=== PATIENT | female | born 1995 | race Caucasian/White ===

== ENCOUNTER 2019-12-20 14:20 | Emergency (ER) | payer MEDICAID ==
[~2019-12-20] VITALS: Ht 157.5 cm; Wt 68.0 kg
[2019-12-20 14:23] VITALS: BP 128/52
[2019-12-20] MEDS ORDERED: HYDROcodone/APAP 10/325 MG 1 TAB TAB PO STA (14:36)
[2019-12-20] MEDS ORDERED: methocarbamoL 500 MG TAB PO STA (14:36)
[2019-12-20] MEDS ORDERED: KETOROLAC 30 MG/ML VIAL IM ONE (14:40)
[2019-12-20] MEDS ORDERED: LIDOCAINE MPF 1% 10 MG/ML VIAL INJ ONE (15:30)
[2019-12-20] MEDS ORDERED: BACITRACIN OINT 500 UNITS/GM PKT TP ONE (15:30)
[2019-12-20 15:44] LABS: BASOPHILS % (AUTO) 0.6 % (0.0-2.0); EOSINOPHILS # (AUTO) 0.1 K/uL (0-0.4); EOSINOPHILS % (AUTO) 1.6 % (0.0-4.0); HEMATOCRIT 40.9 % (36-48); HEMOGLOBIN 13.5 g/dL (12.0-16.0); LYMPHOCYTES # (AUTO) 2.4 K/uL (2.5-16.5); LYMPHOCYTES % (AUTO) 28.4 % (20.5-51.1); MEAN CORPUSCULAR HEMOGLOBIN 28 pg (27-31); MEAN CORPUSCULAR HGB CONC 33 g/dL (33-37); MEAN CORPUSCULAR VOLUME 83.5 fL (80-94); MONOCYTES # (AUTO) 0.5 K/uL (0.8-1.0); MONOCYTES % (AUTO) 6.6 % (1.7-9.3); NEUTROPHILS # (AUTO) 5.3 K/uL (1.8-7.7); NEUTROPHILS % (AUTO) 62.8 % (42.2-75.2); PLATELET COUNT (AUTO) 188 K/uL (140-450); RED BLOOD CELL COUNT(AUTO) 4.89 MIL/uL (4.20-5.40); WHITE BLOOD COUNT (AUTO) 8.4 K/uL (4.8-10.8)
[2019-12-20 15:55] LABS: ANION GAP 14.6 (8-16); CARBON DIOXIDE 25.7 mmol/L (21-32); CREATININE 0.8 mg/dL (0.6-1.3); POTASSIUM 4.3 mmol/L (3.5-5.1)
[2019-12-20 16:09] LABS: ALBUMIN 3.2 g/dL (3.4-5.0); TOTAL BILIRUBIN 0.5 mg/dL (0.0-1.0)
[2019-12-20 18:26] VITALS: BP 113/55
== END 2019-12-20 18:23 | disposition home or self-care (01) ==
LOC: MED 14:20
DX: S71.111A Laceration without foreign body, right thigh, initial encounter (principal); V03.99XA Pedestrian with other conveyance injured in collision with car, pick-up truck or van, unspecified whether traffic or nontraffic accident, initial encounter; Y93.89 Activity, other specified; Y92.89 Other specified places as the place of occurrence of the external cause; Y99.8 Other external cause status
CPT/HCPCS: 12004; 36415; 73701; 80053; 81025; 85025; 93971; 96372; 99285; J1885; J2001; Q0092; Q9967

== ENCOUNTER 2019-12-24 10:05 | Emergency (ER) | payer MEDICAID ==
[~2019-12-24] VITALS: Ht 157.5 cm; Wt 68.0 kg
[2019-12-24 10:08] VITALS: BP 132/74
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
--- NOTE | 2019-12-24 10:21 | NUR ---
SUTURE REMOVAL TRAY AT BED SIDE ERMD NOTIFIED
--- NOTE | 2019-12-24 10:22 | NUR ---
Dr Burrows at bedside examining pt
[2019-12-24] MEDS: BACITRACIN OINT 500 UNITS/GM PKT TP ONE (10:31)
[2019-12-24] MEDS ORDERED: BACITRACIN OINT 500 UNITS/GM PKT TP ONE (10:31)
--- NOTE | 2019-12-24 10:32 | NUR ---
Bacitracin applied to suture site.
--- NOTE | 2019-12-24 10:36 | NUR ---
BACITRACIN APPLIED ON PT LAC AND DRESSED WITH 3X8 NON-ADHERENT GUAZE PAD AND MEDICAL TAPE
[2019-12-24 10:40] VITALS: BP 132/74
--- NOTE | 2019-12-24 10:41 | NUR ---
Patient discharged with v/s stable. Written and verbal after care instructions given and explained. Patient alert, oriented and verbalized understanding of instructions. Ambulatory with steady gait. All questions addressed prior to discharge. ID band removed. Patient advised to follow up with PMD. Rx of Bacitracin 500unit/G given. Patient educated on indication of medication including possible reaction and side effects. Opportunity to ask questions provided and answered.
== END 2019-12-24 10:41 | disposition home or self-care (01) ==
LOC: MED 10:05
DX: S61.411D Laceration without foreign body of right hand, subsequent encounter (principal); X58.XXXD Exposure to other specified factors, subsequent encounter; Z48.00 Encounter for change or removal of nonsurgical wound dressing
CPT/HCPCS: 99282

== ENCOUNTER 2019-12-28 10:29 | Emergency (ER) | payer MEDICAID ==
[~2019-12-28] VITALS: Ht 157.5 cm; Wt 68.0 kg
[2019-12-28 10:32] VITALS: BP 114/85
--- NOTE | 2019-12-28 10:38 | NUR ---
24 Y/O F C/C SUTURE REMOVAL OF RLE, PER PT SUTURES PLACED ON THE . NO ERYTHEMA,DRAINAGE,BLEEDING NOTED. NKA. NO HX. NO RX. NO NVD,FEVER,CHILLS. SIDE RAIL X1.
--- NOTE | 2019-12-28 10:38 | NUR ---
PATIENT AMBULATED TO BED 9.
[2019-12-28] MEDS ORDERED: BACITRACIN OINT 500 UNITS/GM PKT TP ONE (10:52)
[2019-12-28 11:37] VITALS: BP 110/82
--- NOTE | 2019-12-28 11:37 | NUR ---
Patient discharged with v/s stable. Written and verbal after care instructions given and explained. Patient verbalized understanding. Ambulatory with steady gait. All questions addressed prior to discharge. Advised to follow up with PMD.
== END 2019-12-28 11:37 | disposition home or self-care (01) ==
LOC: MED 10:29
DX: S71.111D Laceration without foreign body, right thigh, subsequent encounter (principal); Z48.00 Encounter for change or removal of nonsurgical wound dressing; X58.XXXD Exposure to other specified factors, subsequent encounter
CPT/HCPCS: 99281

== ENCOUNTER 2020-01-05 00:55 | Emergency (ER) | payer MEDICAID ==
[~2020-01-05] VITALS: Ht 157.5 cm; Wt 68.0 kg
[2020-01-05 00:59] VITALS: BP 120/72
[2020-01-05] MEDS ORDERED: LIDOCAINE/EPI 1% 1:100000 20 ML VIAL INJ STA (01:09)
--- NOTE | 2020-01-05 01:24 | NUR ---
SUTURE REMOVAL TRAY AND LIDO AT BEDSIDE FOR .
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
[2020-01-05] MEDS ORDERED: BACITRACIN OINT 500 UNITS/GM PKT TP STA (02:20)
[2020-01-05] MEDS ORDERED: cephALEXin 500 MG CAP PO STA (02:21)
[2020-01-05] MEDS ORDERED: SULFAMETH/TRIMETH DS 800/160MG 1 TAB PO STA (02:21)
[2020-01-05] MEDS ORDERED: SULFAMETH/TRIMETH DS 800/160MG 1 TAB ONE (02:26)
[2020-01-05] MEDS ORDERED: cephALEXin 500 MG CAP ONE (02:26)
[2020-01-05] MEDS ORDERED: BACITRACIN OINT 500 UNITS/GM PKT TP ONE (02:27)
[2020-01-05] MEDS ORDERED: ACETAMINOPHEN EXTRA STRENGTH 500 MG TAB PO STA (02:29)
[2020-01-05] MEDS ORDERED: ACETAMINOPHEN EXTRA STRENGTH 500 MG TAB ONE (02:31)
--- NOTE | 2020-01-05 02:35 | NUR ---
PT WOUND CLEANED WITH BETADINE AND NORMAL SALINE. BACITRACIN APPLIED AND THEN ISLAND DRESSING COVERED WOUND.
[2020-01-05 02:45] VITALS: BP 119/71
--- NOTE | 2020-01-05 02:46 | NUR ---
Patient discharged with v/s stable. Written and verbal after care instructions given and explained. Patient alert, oriented and verbalized understanding of instructions. Ambulatory with steady gait. All questions addressed prior to discharge. ID band removed. Patient advised to follow up with PMD. Rx of KEFLEX AND BACTRIM DS given. Patient educated on indication of medication including possible reaction and side effects. Opportunity to ask questions provided and answered.
== END 2020-01-05 02:45 | disposition home or self-care (01) ==
LOC: MED 00:55
DX: L03.119 Cellulitis of unspecified part of limb (principal); Z48.02 Encounter for removal of sutures
CPT/HCPCS: 99284; J2001

== ENCOUNTER 2023-07-12 17:45 | Emergency (ER) | payer MEDICAID, OTHER ==
[~2023-07-12] VITALS: Ht 157.5 cm; Wt 73.9 kg
[2023-07-12 17:48] VITALS: BP 128/79; PULSE 71; RESP 18; TEMP 97.7; O2SAT 100
[2023-07-12] MEDS: KETOROLAC 30 MG/ML VIAL IM ONE (18:31)
[2023-07-12] MEDS ORDERED: NAPR-337 PO (18:52)
[2023-07-12] MEDS ORDERED: ACET-10509 PO (18:52)
[2023-07-12] MEDS ORDERED: CYCL-711 PO (18:52)
[2023-07-12] MEDS ORDERED: LID5T TP (18:52)
[2023-07-12 19:27] VITALS: BP 128/79; PULSE 71; RESP 18; TEMP 97.7; O2SAT 100
== END 2023-07-12 18:57 | disposition home or self-care (01) ==
LOC: MED 17:45
DX: S83.91XA Sprain of unspecified site of right knee, initial encounter (principal); M54.41 Lumbago with sciatica, right side; Z79.899 Other long term (current) drug therapy; W18.39XA Other fall on same level, initial encounter; Y92.89 Other specified places as the place of occurrence of the external cause; Y93.89 Activity, other specified; Y99.8 Other external cause status
CPT/HCPCS: 29505; 81025; 96372; 99283; J1885